=== PATIENT | male | born 1990 | race Caucasian/White ===

== ENCOUNTER 2022-07-05 12:20 | Emergency (ER) | payer OTHER, SELFPAY ==
[2022-07-05] VITALS (7 sets, daily range): BP systolic 136–149; BP diastolic 82–98; PULSE 74–93; RESP 15–20; TEMP 36.6–37.1; O2SAT 96–98; BMI 22.3
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
--- NOTE | 2022-07-05 13:25 | DI.RAD.S_ITS ---
PROCEDURE: XR KNEE LT 1TO2V INDICATIONS: injury TECHNIQUE: 3 views of the knee were acquired. COMPARISON: [facility], CT, CT KNEE LEFT WITHOUT CON, 07/05/2022, 12:41. FINDINGS: No significant change in alignment of mildly depressed and comminuted right lateral tibial plateau fracture along with comminuted tibial spine fractures. IMPRESSION: Unchanged alignment of tibial fracture fragments. Dictated by: Giorgi Jackson M.D. on 07/05/2022 at 13:22 Approved by: Giorgi Jackson M.D. on 07/05/2022 at 13:23
== END 2022-07-05 15:08 | disposition home or self-care (01) ==
PROVIDERS: Emergency Provider Emergency Medicine; Referring Provider Emergency Medicine
DX: S82.142A Displaced bicondylar fracture of left tibia, initial encounter for closed fracture (principal); V03.10XA Pedestrian on foot injured in collision with car, pick-up truck or van in traffic accident, initial encounter; Y92.410 Unspecified street and highway as the place of occurrence of the external cause; Y99.0 Civilian activity done for income or pay
CPT/HCPCS: 73560; 73700; 99284